=== PATIENT | female | born 2000 | race Caucasian/White ===

== ENCOUNTER 2022-07-28 10:46 | Outpatient (CLI) | payer OTHER ==
[~2022-07-28] VITALS: Ht 167.6 cm; Wt 100.5 kg
--- NOTE | 2022-07-28 10:40 | NUR ---
Pt arrived ambulatory on unit from clinic for elevated blood pressures. Pt reports occasional ctx, denies any leaking of fluid or vaginal bleeding and reports normal movement. EFM and toco monitors started. Serial blood pressure checks started. Dr. Ballesteros notified. See physician notification for details.
[2022-07-28 10:45] VITALS: BP 135/95; PULSE 127
[2022-07-28] MEDS ORDERED: PRENATAL (10:52)
[2022-07-28 10:58] VITALS: BP 136/79; PULSE 98
[2022-07-28 11:14] VITALS: BP 109/64; PULSE 91
[2022-07-28 11:17] VITALS: TEMP 98.5
== END 2022-07-28 11:30 | disposition home or self-care (01) ==
LOC: LDRO 10:46
DX: O13.3 Gestational [pregnancy-induced] hypertension without significant proteinuria, third trimester (principal); Z3A.37 37 weeks gestation of pregnancy